=== PATIENT | female | born 1950 | race Caucasian/White ===

== ENCOUNTER 2016-09-18 07:22 | Day surgery (SDC) | payer BC ==
--- NOTE | ~2016-09-18 | EGD ---
EGD REPORT [facility] [address] [address] NAME: ALE JERNIGAN : [birth year] STATUS : REG [facility] PAT#: [id number] AGE: 65 ADM/REG DATE : 09/18/16 MR#: [id number] REPORT SERV DATE: 09/18/16 DICTATED BY: TONEY GUZMAN DATE: 09/18/16 REPORT STATUS : Draft [facility]ANS[facility]IBED BY: [facility] DATE: 09/18/16 End[facility] Center Patient Name: Ale Jernigan Date of : 1950 Attending MD: TONEY GUZMAN MD Procedure Date No Time: 09/18/2016 Procedure: Colonoscopy Indications: Abdominal pain in the left lower quadrant, Clinically significant diarrhea of unexplained origin Referring MD: Yon Ahumada MD Medicines: as per anesthesia Complications: No immediate complications. Procedure: Pre-Anesthesia Assessment: - ASA Grade Assessment: III - A patient with severe systemic disease. After I obtained informed consent, the scope was passed under direct vision. Throughout the procedure, the patient's blood pressure, pulse, and oxygen saturations were monitored continuously. The [facility] [id number] was introduced through the anus and advanced to the cecum, identified by appendiceal orifice and ileocecal valve. The colonoscopy was performed without difficulty. The patient tolerated the procedure. The quality of the bowel preparation was adequate to identify polyps. Findings: The perianal and digital rectal examinations were normal. The colon (entire examined portion) appeared normal. Four biopsies were obtained in the rectum and in the ascending colon with cold forceps for histology. Impression: - The entire examined colon is normal. - Four biopsies were obtained in the rectum and in the ascending colon. Recommendation: - Await pathology results. - Repeat colonoscopy for surveillance. Procedure Code(s): --- Professional --- 18216, Colonoscopy, flexible, proximal to splenic flexure; with biopsy, single or multiple Diagnosis Code(s): --- Professional --- R10.32, Left lower quadrant pain R19.7, Diarrhea, unspecified EGD REPORT [facility] [address] [facility] [place] [address] NAME: ALE JERNIGAN : [birth year] STATUS : REG [facility] PAT#: [id number] AGE: 65 ADM/REG DATE : 09/18/16 MR#: [id number] REPORT SERV DATE: 09/18/16 DICTATED BY: TONEY GUZMAN. DATE: 09/18/16 REPORT STATUS : Draft TRANSCRIBED BY: [facility] DATE: 09/18/16 CPT copyright 2013 [employer]. All rights reserved. The codes documented in this report are preliminary and upon kayaking instructor review may be revised to meet current compliance requirements. TOENY GUZMAN MD 09/18/2016 9:58 AM This report has been signed electronically. Number of Addenda: 0 Note Initiated On: 09/18/2016 9:15 AM Scope Withdrawal Time 0 hours 8 minutes 18 seconds [address] [facility] [place] [place] [address]
--- NOTE | ~2016-09-18 | EGD ---
EGD REPORT [facility] [address] [address] NAME: ALE JERNIGAN : [birth year] STATUS : REG [facility] PAT#: [id number] AGE: 65 ADM/REG DATE : 09/18/16 MR#: [id number] REPORT SERV DATE: 09/18/16 DICTATED BY: TONEY GUZMAN DATE: 09/18/16 REPORT STATUS : Draft [facility]IB[facility]: [facility] DATE: 09/18/16 Endoscopy Center Patient Name: Ale Jernigan Date of : 1950 Attending MD: TONEY GUZMAN MD Procedure Date No Time: 09/18/2016 Procedure: Upper GI endoscopy Indications: Dysphagia, Heartburn, Suspected esophageal reflux, Diarrhea Referring MD: Yon Ahumada MD Medicines: as per anesthesia Complications: No immediate complications. Procedure: Pre-Anesthesia Assessment: - ASA Grade Assessment: III - A patient with severe systemic disease. After obtaining informed consent, the endoscope was passed under direct vision. Throughout the procedure, the patient's blood pressure, pulse, and oxygen saturations were monitored continuously. The GIF H190 [id number] was introduced through the mouth, and advanced to the third part of duodenum. The upper GI endoscopy was accomplished without difficulty. The patient tolerated the procedure. Findings: The examined esophagus was normal. The scope was withdrawn. Dilation was performed with a Delgado dilator with no resistance at 44 Fr. Localized mild inflammation characterized by erythema was found in the gastric antrum. Biopsies were taken with a cold forceps for histology. The cardia and gastric fundus were normal on retroflexion. The examined duodenum was normal. Biopsies were taken with a cold forceps for histology. Impression: - Normal esophagus. Dilated. - Gastritis. Biopsied. - Normal examined duodenum. Biopsied. Recommendation: - Await pathology results. - Follow an antireflux regimen. - Continue present medications. Procedure Code(s): --- Professional --- 14517, Esophagogastroduodenoscopy, flexible, transoral; with biopsy, single or multiple 34645, Dilation of esophagus, by unguided sound or EGD REPORT [facility] [address] [place] [address] [address] [address] NAME: ALE JERNIGAN : [birth year] STATUS : REG [facility] PAT#: [id number] AGE: 65 ADM/REG DATE : 09/18/16 MR#: [id number] REPORT SERV DATE: 09/18/16 DICTATED BY: TONEY GUZMAN DATE: 09/18/16 REPORT STATUS : Draft TRANSCRIBED BY: [employer] [facility] DATE: 09/18/16 bougie, single or multiple passes Diagnosis Code(s): --- Professional --- K29.70, Gastritis, unspecified, without bleeding R13.10, Dysphagia, unspecified R12, Heartburn R19.7, Diarrhea, unspecified CPT copyright 2013 [employer]. All rights reserved. The codes documented in this report are preliminary and upon oil developer review may be revised to meet current compliance requirements. TONEY GUZMAN MD 09/18/2016 9:39 AM This report has been signed electronically. Number of Addenda: 0 Note Initiated On: 09/18/2016 9:17 AM Scope Withdrawal Time 0 hours 0 minutes 0 seconds [address] [facility] [place] [address]
[~2016-09-18 07:22] MED LIST: ADVIL PO; ASAB PO; BEN25 PO; CARDCD180 PO; DEPO-ESTRADIO1 MG/ML IM; HYDROCHLOROT12.5 MG PO; LIPOFLAVINOID PO; LISINOPRIL PO; MUCINEX DM1 TA1 OR; PREV30 PO; PYRID60 PO; SYN.05 PO; X5 PO
== END 2016-09-18 23:59 | disposition home or self-care (01) ==
LOC: DMU 07:22
PROVIDERS: Internal Medicine Gastroenterology
PROC: 0DB98ZX Excision of Duodenum, Via Natural or Artificial Opening Endoscopic, Diagnostic (ICD-10-PCS; 2016-09-18)
PROC: 0DB68ZX Excision of Stomach, Via Natural or Artificial Opening Endoscopic, Diagnostic (ICD-10-PCS; 2016-09-18)
PROC: 0D757ZZ Dilation of Esophagus, Via Natural or Artificial Opening (ICD-10-PCS; 2016-09-18)
PROC: 0DBP8ZX Excision of Rectum, Via Natural or Artificial Opening Endoscopic, Diagnostic (ICD-10-PCS; principal; 2016-09-18 09:00)
PROC: 0DBK8ZX Excision of Ascending Colon, Via Natural or Artificial Opening Endoscopic, Diagnostic (ICD-10-PCS; 2016-09-18 09:00)
DX: K29.60 Other gastritis without bleeding (principal); R10.32 Left lower quadrant pain; R19.7 Diarrhea, unspecified; R13.10 Dysphagia, unspecified; R12 Heartburn; Z88.0 Allergy status to penicillin; G70.00 Myasthenia gravis without (acute) exacerbation; R53.1 Weakness; I10 Essential (primary) hypertension; E03.9 Hypothyroidism, unspecified; Z79.899 Other long term (current) drug therapy; Z79.82 Long term (current) use of aspirin; Z88.5 Allergy status to narcotic agent
CPT/HCPCS: 88305; 88341; 88342